=== PATIENT | female | born 1995 | race Caucasian/White ===

== ENCOUNTER 2016-10-24 06:52 | Observation (INO) | payer OTHER ==
[2013-11-12 22:11] VITALS: O2SAT 99
[2016-10-24 07:20] VITALS: BP 117/78; PULSE 80; RESP 20; TEMP 97.4
[2016-10-24 08:21] LABS: APPEARANCE,URINE Clear; BILIRUBIN,URINE NEGATIVE (NEGATIVE); COLOR,URINE Yellow; GLUCOSE, URINE (UA) NEGATIVE (NEGATIVE); KETONES,URINE NEGATIVE (NEGATIVE); LEUKOCYTE ESTERASE ,URINE TRACE (NEGATIVE); NITRATE,URINE NEGATIVE (NEGATIVE); OCCULT BLOOD,URINE NEGATIVE (NEG-TRACE); UROBILINOGEN,URINE 0.2 (0.2-1.0 EU)
[2016-10-24 08:39] LABS: RBC,URINE 0-2 (0-3AV/HPF)
== END 2016-10-24 09:45 | disposition home or self-care (01) | DRG 781 ==
LOC: OB 06:52
PROVIDERS: ADMIT Family Medicine; ATTEND Family Medicine
DX: O26.893 Other specified pregnancy related conditions, third trimester (principal); R10.9 Unspecified abdominal pain
CPT/HCPCS: 59025; 81001

== ENCOUNTER 2016-11-06 09:03 | Inpatient (IN) | payer OTHER ==
[2016-11-06] MEDS ORDERED: SODIUM CHLORIDE 0.9% FLUSH 10 ML SOL IV PRN (19:48)
[2016-11-06] MEDS ORDERED: MEPIVACAINE HCL 1% MPF 30 ML SOL INFIL PRN (19:48)
[2016-11-06] MEDS ORDERED: FENTANYL CITRATE 50 MCG/ML SOL IV PRN (19:48)
[2016-11-06] MEDS ORDERED: CARBOPROST 250 MCG/ML SOL IM PRN (19:48)
[2016-11-06] MEDS ORDERED: LACTATED RINGERS 1,000 ML IV PRN (19:48)
[2016-11-06] MEDS ORDERED: OXYTOCIN 10000 MU/ML SOL IM PRN (19:48)
[2016-11-06] MEDS ORDERED: METHYLERGONOVINE MALEATE 0.2 MG/ML SOL IM PRN (19:48)
[2016-11-06] MEDS ORDERED: TERBUTALINE SULFATE 1 MG/ML SOL SC PRN (19:48)
[2016-11-06 20:04] LABS: BASOPHILS % (AUTO) 1 % (0-3); EOSINOPHILS % (AUTO) 2 % (0-9); HEMATOCRIT 36 % (35-47); MEAN CORPUSCULAR HGB CONC 34.9 gm/dl (32.0-36.0); MEAN CORPUSCULAR VOLUME 84 fL (81-99); MONOCYTES % (AUTO) 7.9 % (0-12); NEUTROPHILS % (AUTO) 67.8 % (37-80)
[2016-11-06 20:19] LABS: APPEARANCE,URINE Clear; BILIRUBIN,URINE NEGATIVE (NEGATIVE); COLOR,URINE Yellow; GLUCOSE, URINE (UA) NEGATIVE (NEGATIVE); KETONES,URINE NEGATIVE (NEGATIVE); LEUKOCYTE ESTERASE ,URINE TRACE (NEGATIVE); NITRATE,URINE NEGATIVE (NEGATIVE); OCCULT BLOOD,URINE NEGATIVE (NEG-TRACE); UROBILINOGEN,URINE 0.2 (0.2-1.0 EU)
[2016-11-06] MEDS: MISOPROSTOL 100 MCG TAB PO SCH (20:25)
[2016-11-06] MEDS: SERTRALINE HYDROCHLORIDE 50 MG TAB PO SCH (20:25)
[2016-11-06 20:43] LABS: RBC,URINE NEG (0-3AV/HPF); WBC,URINE 0-3 (0-5AV/HPF)
[2016-11-06] MEDS ORDERED: MULTIVITAMIN2 1 EA TAB ONE (21:23)
[2016-11-06] MEDS: MULTIVITAMIN2 1 EA TAB PO SCH (21:30)
[2016-11-06] MEDS: SODIUM CHLORIDE 0.9% FLUSH 10 ML SOL IV SCH (21:32)
[2016-11-07] MEDS: MISOPROSTOL 100 MCG TAB PO SCH ×4 (00:48→16:47)
[2016-11-07] MEDS: SODIUM CHLORIDE 0.9% FLUSH 10 ML SOL IV SCH ×3 (05:48→21:17)
[2016-11-07] MEDS ORDERED: IRON FUMARATE PO SCH (09:00)
[2016-11-07] MEDS ORDERED: PRENATAL VIT PO SCH (09:00)
[2016-11-07] MEDS ORDERED: [UNRECOGNIZED DRUG - OTHER] PO SCH (09:00)
[2016-11-07] MEDS ORDERED: TERBUTALINE SULFATE 1 MG/ML SOL SC PRN (16:38)
[2016-11-07] MEDS: OXYTOCIN 10000 MU/ML 20,000 MU in LACTATED RINGERS 1,000 ML IV SCH ×2 (17:03→17:15)
[2016-11-07] MEDS: LACTATED RINGERS 1,000 ML IV SCH (17:05)
[2016-11-07] MEDS: MULTIVITAMIN2 1 EA TAB PO SCH (21:24)
[2016-11-07] MEDS: SERTRALINE HYDROCHLORIDE 50 MG TAB PO SCH (21:24)
[2016-11-07] MEDS: HYDROXYZINE PAMOATE 25 MG CAP PO PRN (22:15)
[2016-11-08] MEDS: SODIUM CHLORIDE 0.9% FLUSH 10 ML SOL IV SCH ×3 (03:54→20:06)
[2016-11-08] MEDS ORDERED: NALOXONE HYDROCHLORIDE 0.4 MG/ML SOL IV PRN (04:43)
[2016-11-08] MEDS ORDERED: NALBUPHINE HCL 20 MG/ML SOL IV PRN (04:43)
[2016-11-08] MEDS ORDERED: DIPHENHYDRAMINE 50 MG/ML SOL IV PRN (04:43)
[2016-11-08] MEDS ORDERED: EPHEDRINE SULFATE 50 MG/ML SOL IV PRN (04:43)
[2016-11-08] MEDS: LACTATED RINGERS 1,000 ML IV SCH ×9 (04:45→23:24)
[2016-11-08] MEDS ORDERED: FENTANYL CITRATE 50 MCG/ML SOL ONE (05:09)
[2016-11-08] MEDS ORDERED: LIDOCAINE HCL 2% MPF SOL ONE ×2 (05:09→12:59)
[2016-11-08] MEDS ORDERED: ROPIVACAINE HYDROCHLORIDE 5 MG/ML SOL ONE (05:09)
[2016-11-08] MEDS ORDERED: CITRIC ACID/SODIUM CITRATE SOL PO ONE (12:45)
[2016-11-08] MEDS ORDERED: CLINDAMYCIN 150 MG/ML SOL ONE ×2 (13:04→19:59)
[2016-11-08] MEDS: CLINDAMYCIN 150 MG/ML 600 MG in SODIUM CHLORIDE 0.9% 100 ML 100 ML IV SCH ×3 (13:15→23:25)
[2016-11-08] MEDS ORDERED: LACTATED RINGERS 1,000 ML with OXYTOCIN 10000 MU/ML 20 MU IV ONE ×2 (13:33→13:54)
[2016-11-08 13:49] LABS: ABO A; ANTIBODY SCREEN Negative; RH TYPE Positive
[2016-11-08] MEDS ORDERED: KETOROLAC TROMETHAMINE 30 MG/ML SOL ONE (14:31)
[2016-11-08] MEDS ORDERED: WITCH HAZEL 1 EA PAD TOP PRN (15:34)
[2016-11-08] MEDS ORDERED: METHYLERGONOVINE MALEATE 0.2 MG TAB PO PRN (15:34)
[2016-11-08] MEDS ORDERED: BISACODYL 10 MG SUP PR PRN (15:34)
[2016-11-08] MEDS ORDERED: TEMAZEPAM 15MG 15 MG CAP PO PRN (15:34)
[2016-11-08] MEDS ORDERED: ONDANSETRON HCL 4 MG/2 ML SOL IV PRN (15:34)
[2016-11-08] MEDS ORDERED: FLEET ENEMA PR PRN (15:34)
[2016-11-08] MEDS ORDERED: DIPHENHYDRAMINE 25 MG CAP PO PRN (15:34)
[2016-11-08] MEDS ORDERED: BENZOCAINE/MENTHOL 1 SPR TOP PRN (15:34)
[2016-11-08] MEDS ORDERED: KETOROLAC TROMETHAMINE 30 MG/ML SOL IV PRN (15:34)
[2016-11-08] MEDS: APAP/HYDROCODONE 325/5 TAB PO PRN ×2 (17:33→20:49)
[2016-11-08] MEDS ORDERED: CLINDAMYCIN 150 MG/ML 600 MG in SODIUM CHLORIDE 0.9% 100 ML 100 ML IV SCH (19:30)
[2016-11-08] MEDS: DOCUSATE SODIUM 100 MG SGL PO SCH (20:49)
[2016-11-08] MEDS: MULTIVITAMIN2 1 EA TAB PO SCH (20:49)
[2016-11-08] MEDS: SERTRALINE HYDROCHLORIDE 50 MG TAB PO SCH (20:56)
[2016-11-08] MEDS: HYDROXYZINE PAMOATE 25 MG CAP PO PRN (22:56)
[2016-11-09] MEDS: IBUPROFEN 600 MG TAB PO PRN ×3 (00:40→14:03)
[2016-11-09] MEDS: LACTATED RINGERS 1,000 ML IV SCH ×2 (01:14→06:05)
[2016-11-09] MEDS: APAP/HYDROCODONE 325/5 TAB PO PRN ×6 (02:53→22:27)
[2016-11-09] MEDS: SODIUM CHLORIDE 0.9% FLUSH 10 ML SOL IV SCH (05:03)
[2016-11-09] MEDS: DOCUSATE SODIUM 100 MG SGL PO SCH ×2 (09:19→21:26)
[2016-11-09] MEDS: MULTIVITAMIN2 1 EA TAB PO SCH (21:26)
[2016-11-09] MEDS: SERTRALINE HYDROCHLORIDE 50 MG TAB PO SCH (21:26)
[2016-11-10] MEDS: IBUPROFEN 600 MG TAB PO PRN ×3 (01:48→18:49)
[2016-11-10] MEDS: APAP/HYDROCODONE 325/5 TAB PO PRN ×5 (01:48→23:30)
[2016-11-10] MEDS: DOCUSATE SODIUM 100 MG SGL PO SCH ×2 (08:49→21:58)
[2016-11-10 14:31] LABS: APPEARANCE,URINE Cloudy; BILIRUBIN,URINE NEGATIVE (NEGATIVE); COLOR,URINE Yellow; GLUCOSE, URINE (UA) NEGATIVE (NEGATIVE); KETONES,URINE NEGATIVE (NEGATIVE); LEUKOCYTE ESTERASE ,URINE 3+ (NEGATIVE); NITRATE,URINE NEGATIVE (NEGATIVE); OCCULT BLOOD,URINE 3+ (NEG-TRACE); UROBILINOGEN,URINE 0.2 (0.2-1.0 EU)
[2016-11-10 14:50] LABS: WBC,URINE >200 (0-5AV/HPF)
[2016-11-10] MEDS: MACROBID 100 MG PO SCH ×2 (17:30→21:59)
[2016-11-10] MEDS: MULTIVITAMIN2 1 EA TAB PO SCH (21:58)
[2016-11-10] MEDS: SERTRALINE HYDROCHLORIDE 50 MG TAB PO SCH (21:59)
[2016-11-11] MEDS: IBUPROFEN 600 MG TAB PO PRN (01:14)
[2016-11-11 01:23] VITALS: RESP 20
[2016-11-11] MEDS: APAP/HYDROCODONE 325/5 TAB PO PRN ×2 (05:15→11:00)
[2016-11-11 05:19] VITALS: BP 113/71; PULSE 73; TEMP 98.1; O2SAT 94
[2016-11-11] MEDS: DOCUSATE SODIUM 100 MG SGL PO SCH (09:30)
[2016-11-11] MEDS: MACROBID 100 MG PO SCH (09:31)
== END 2016-11-11 16:05 | disposition home or self-care (01) | DRG 766 ==
LOC: OBSVTOIN 18:51 → OB 18:51 → EDSTATUS 19:00
PROVIDERS: ADMIT Family Medicine; ATTEND Family Medicine
PROC: 10907ZC Drainage of Amniotic Fluid, Therapeutic from Products of Conception, Via Natural or Artificial Opening (ICD-10-PCS; 2016-11-08)
PROC: 10D00Z1 Extraction of Products of Conception, Low, Open Approach (ICD-10-PCS; principal; 2016-11-08 13:30)
DX: O48.0 Post-term pregnancy (principal); O66.9 Obstructed labor, unspecified; Z3A.41 41 weeks gestation of pregnancy; Z37.0 Single live birth; R30.0 Dysuria
CPT/HCPCS: 36415; 59025; 81001; 85018; 85025; 86850; 86900; 86901; 87077; 87088; 87186; 94762; J0670; J1885; J2590; J2795; J3010; J3105; J3490

== ENCOUNTER 2018-10-30 19:52 | Emergency (ER) | payer OTHER ==
[2018-10-30 20:37] VITALS: RESP 18; TEMP 97.2
[2018-10-30] MEDS ORDERED: MECLIZINE HYDROCHLORIDE 12.5 MG TAB PO ONE (21:01)
[2018-10-30] MEDS ORDERED: MECLIZINE HYDROCHLORIDE 12.5 MG TAB ONE (21:03)
[2018-10-30] MEDS ORDERED: DIAZEPAM 5 MG TAB PO ONE (21:42)
[2018-10-30] MEDS ORDERED: KETOROLAC TROMETHAMINE 30 MG/ML SOL IV ONE (21:43)
[2018-10-30] MEDS ORDERED: DIAZEPAM 5 MG TAB ONE (21:48)
[2018-10-30] MEDS ORDERED: KETOROLAC TROMETHAMINE 30 MG/ML SOL ONE (21:49)
[2018-10-30 22:05] VITALS: PULSE 64
[2018-10-30 22:09] VITALS: BP 107/75; O2SAT 98
== END 2018-10-30 22:38 | disposition home or self-care (01) | DRG 149 ==
LOC: ED 19:52
DX: R42 Dizziness and giddiness (principal)
CPT/HCPCS: 99283; J1885; A9270-GY